=== PATIENT | female | born 1970 | race Caucasian/White ===

== ENCOUNTER → 2017-04-04 | Outpatient (CLI) | payer BC, OTHER ==
[~2017-04-04] MED LIST: CHOL50007 PO; LOSA100T25 PO; METH500T2; METO-169 PO; PRENTAB28 PO; RANI150C11 PO
== END | disposition home or self-care (01) ==
LOC: LAB 08:44
PROVIDERS: ATTEND Obstetrics & Gynecology
DX: R87.810 Cervical high risk human papillomavirus (HPV) DNA test positive (principal)

== ENCOUNTER → 2017-04-05 | Outpatient (CLI) | payer BC ==
[~2017-04-05] MED LIST changes: -CHOL50007 PO; -LOSA100T25 PO; -METO-169 PO; -RANI150C11 PO
[2017-04-05 09:33] LABS: Basophils # (auto) 0.1 uL; Hemoglobin 12.4 g/dL (12.2-16.2)
[2017-04-05 09:36] LABS: Basophils % (auto) 0.9 % (0.0-2.0); Eosinophils # (auto) 0.5 uL; Eosinophils % (auto) 5.6 % (0.0-7.0); Lymphocytes # (auto) 1.5 uL; Mean Corpuscular Hemoglobin 26.7 pg (28.0-32.0); Mean Corpuscular Hgb Conc. 33.5 g/dL (32.0-36.0); Mean Corpuscular Volume 79.6 fL (80.0-100.0); Mean Platelet Volume 8.7 fL (6.9-10.8); Monocytes # (auto) 0.4 uL; Monocytes % (auto) 4.7 % (0.0-12.0); Neutrophils # (auto) 5.6 uL; Neutrophils % (auto) 69.8 % (37.0-80.0); Platelet Count (auto) 279 10^3/uL (140-450); Red Cell Distribution Width 16.5 % (11.8-14.3); White Blood Cell 8.1 10^3/uL (4.4-10.8)
[2017-04-05 10:33] LABS: Albumin 3.6 g/dL (3.4-5.0); BUN/Creatinine Ratio 17.4; Bilirubin, Total 0.4 mg/dL (0.2-1.0); Potassium 4.4 mmol/L (3.5-5.1); Total Protein 7.5 g/dL (6.4-8.2)
== END | disposition home or self-care (01) ==
LOC: LAB 08:11
PROVIDERS: ATTEND Internal Medicine
DX: I10 Essential (primary) hypertension (principal); M10.00 Idiopathic gout, unspecified site
CPT/HCPCS: 36415; 80053; 80061; 82306; 84443; 85025

== ENCOUNTER 2017-07-19 07:46 | Day surgery (SDC) | payer BC, OTHER ==
[2017-07-16 11:40] LABS: Basophils # (auto) 0.1 uL; Eosinophils # (auto) 0.4 uL; Eosinophils % (auto) 4.6 % (0.0-7.0); Monocytes # (auto) 0.4 uL
[2017-07-16 11:42] LABS: Basophils % (auto) 0.9 % (0.0-2.0); Hematocrit 38.2 % (36.0-46.0); Hemoglobin 12.5 g/dL (12.2-16.2); Lymphocytes # (auto) 1.8 uL; Mean Corpuscular Hemoglobin 26.1 pg (28.0-32.0); Mean Corpuscular Hgb Conc. 32.8 g/dL (32.0-36.0); Mean Corpuscular Volume 79.6 fL (80.0-100.0); Monocytes % (auto) 4.7 % (0.0-12.0); Neutrophils # (auto) 5.1 uL; Neutrophils % (auto) 66.8 % (37.0-80.0); Nucleated Red Blood Cells % 0.1 %; Platelet Count (auto) 290 10^3/uL (140-450); Red Cell Distribution Width 17.1 % (11.8-14.3); White Blood Cell 7.7 10^3/uL (4.4-10.8)
[2017-07-16 11:47] LABS: Urine Blood 3+ /uL (Negative); Urine Specific Gravity 1.021 (1.001-1.035)
[2017-07-16 11:48] LABS: Albumin 3.6 g/dL (3.4-5.0); BUN/Creatinine Ratio 13.6; Bilirubin, Total 0.4 mg/dL (0.2-1.0); Calcium 8.5 mg/dL (8.5-10.1); Potassium 3.8 mmol/L (3.5-5.1); Total Protein 7.4 g/dL (6.4-8.2)
[2017-07-16 11:53] LABS: INR 0.93 (0.9-1.15); Partial Thromboplastin Time 28.7 sec (22.64-33.71); Prothrombin Time 10.1 sec (9.37-12.3)
[~2017-07-19] VITALS: Ht 165.1 cm; Wt 115.2 kg
[~2017-07-19 07:46] MED LIST changes: +CHOL50007 PO; +LOSA100T25 PO; -METH500T2; +METO-169 PO; -PRENTAB28 PO; +RANI150C11 PO
[2017-07-19] MEDS ORDERED: ROCURONIUM 10MG/ML 10ML VIAL IV ONE (07:47)
[2017-07-19] MEDS ORDERED: ceFAZolin 1GM/50ML 50 ML IV ONE (07:54)
[2017-07-19] MEDS ORDERED: PROPOFOL 10 MG/ML 20 ML IV ONE (08:13)
[2017-07-19] MEDS ORDERED: fentaNYL CITRATE 100 MCG/2 ML VL ONE (08:13)
[2017-07-19] MEDS ORDERED: ONDANSETRON HCL 4 MG/2 ML VIAL ONE (08:13)
[2017-07-19] MEDS ORDERED: MIDAZOLAM HCL 1MG/1ML-2 ML VIAL ONE (08:13)
[2017-07-19] MEDS ORDERED: IODINE STRONG 5% SOLN 473ML ONE (09:47)
[2017-07-19] MEDS ORDERED: FERRIC SUBSULFATE TOPICAL SOLN 30 ML BTL ONE (09:47)
[2017-07-19] MEDS ORDERED: MORPHINE SULFATE 4 MG/ML SYR/VIAL IV PRN (10:00)
[2017-07-19] MEDS ORDERED: KETOROLAC TROMETH 30 MG/ML 1ML VIAL IV ONE (10:00)
[2017-07-19] MEDS ORDERED: METOCLOPRAMIDE HCL 5MG/ml INJ 2ml VIAL IV ONE (10:00)
[2017-07-19] MEDS ORDERED: LACTATED RINGER'S 1,000 ML IV SCH (10:39)
[2017-07-19] MEDS ORDERED: ONDANSETRON HCL 4 MG/2 ML VIAL IV PRN (10:45)
[2017-07-19 11:38] VITALS: BP 125/82
== END 2017-07-19 11:53 | disposition home or self-care (01) ==
LOC: SUR 07:46
PROVIDERS: ATTEND Obstetrics & Gynecology
DX: R87.613 High grade squamous intraepithelial lesion on cytologic smear of cervix (HGSIL) (principal); E66.01 Morbid (severe) obesity due to excess calories; Z68.41 Body mass index [BMI] 40.0-44.9, adult; I10 Essential (primary) hypertension; Z90.49 Acquired absence of other specified parts of digestive tract
CPT/HCPCS: 36415; 57522; 80053; 81003; 84702; 85025; 85610; 85730; 86850; 86900; 86901; J0690; J2250; J2405; J2704; J3010

== ENCOUNTER → 2018-04-08 | Outpatient (CLI) | payer BC, OTHER ==
[2018-04-08 09:17] LABS: Albumin 3.4 g/dL (3.4-5.0); Potassium 4.1 mmol/L (3.5-5.1)
[2018-04-08 09:25] LABS: BUN/Creatinine Ratio 12.9; Bilirubin, Total 0.5 mg/dL (0.2-1.0); Calcium 8.7 mg/dL (8.5-10.1); Mean Corpuscular Hgb Conc. 32.1 g/dL (32.0-36.0); Monocytes # (auto) 0.4 uL; Red Blood Cells 4.91 10^6/uL (4.0-5.20); Total Protein 7.5 g/dL (6.4-8.2)
[2018-04-08 09:27] LABS: Basophils # (auto) 0.1 uL; Basophils % (auto) 0.6 % (0.0-2.0); Eosinophils # (auto) 0.4 uL; Eosinophils % (auto) 4.1 % (0.0-7.0); Hematocrit 39.2 % (36.0-46.0); Hemoglobin 12.6 g/dL (12.2-16.2); Lymphocytes # (auto) 1.4 uL; Lymphocytes % (auto) 16.5 % (10.0-50.0); Mean Corpuscular Hemoglobin 25.6 pg (28.0-32.0); Mean Corpuscular Volume 79.8 fL (80.0-100.0); Monocytes % (auto) 4.1 % (0.0-12.0); Neutrophils # (auto) 6.4 uL; Neutrophils % (auto) 74.7 % (37.0-80.0); Nucleated Red Blood Cells % 0.1 %; Platelet Count (auto) 288 10^3/uL (140-450); Red Cell Distribution Width 16.8 % (11.8-14.3); White Blood Cell 8.6 10^3/uL (4.4-10.8)
== END | disposition home or self-care (01) ==
LOC: LAB 08:30
PROVIDERS: ATTEND Internal Medicine
DX: I10 Essential (primary) hypertension (principal); E55.9 Vitamin D deficiency, unspecified
CPT/HCPCS: 36415; 80053; 80061; 82306; 84443; 85025

== ENCOUNTER → 2018-09-08 | Outpatient (CLI) | payer BC, OTHER | END | disposition home or self-care (01) | LOC: LAB 09:20 | PROVIDERS: ATTEND Internal Medicine | DX: R73.01 Impaired fasting glucose (principal) | CPT/HCPCS: 36415; 83036 ==

== ENCOUNTER → 2020-04-04 | Outpatient (CLI) | payer BC ==
[2020-04-04 08:24] LABS: Basophils # (auto) 0.1 10 ^3/uL (0-0.2); Eosinophils # (auto) 0.3 10 ^3/uL (0-0.8); Hemoglobin 12.3 g/dL (12.2-16.2); Lymphocytes # (auto) 1.7 10 ^3/uL (0.4-5.4); Monocytes # (auto) 0.4 10 ^3/uL (0-1.3); Red Cell Distribution Width 17.9 % (11.8-14.3)
[2020-04-04 08:25] LABS: Basophils % (auto) 1.1 % (0.0-2.0); Eosinophils % (auto) 2.8 % (0.0-7.0); Hematocrit 38.5 % (36.0-46.0); Lymphocytes % (auto) 18.4 % (10.0-50.0); Mean Corpuscular Volume 78.1 fL (80.0-100.0); Monocytes % (auto) 4.5 % (0.0-12.0); Neutrophils # (auto) 6.9 10 ^3/uL (1.6-8.6); Neutrophils % (auto) 73.2 % (37.0-80.0); Platelet Count (auto) 306 10^3/uL (140-450); Red Blood Cells 4.93 10^6/uL (4.0-5.20); White Blood Cell 9.4 10^3/uL (4.4-10.8)
[2020-04-04 09:44] LABS: Potassium 3.2 mmol/L (3.5-5.1)
[2020-04-04 09:52] LABS: Albumin 3.6 g/dL (3.4-5.0); BUN/Creatinine Ratio 14.7; Bilirubin, Total 0.4 mg/dL (0.2-1.0); Calcium 9.5 mg/dL (8.5-10.1); Total Protein 7.5 g/dL (6.4-8.2)
== END | disposition home or self-care (01) ==
LOC: LAB 08:11
PROVIDERS: ATTEND Internal Medicine
DX: Z00.00 Encounter for general adult medical examination without abnormal findings (principal); I10 Essential (primary) hypertension; E55.9 Vitamin D deficiency, unspecified; R73.01 Impaired fasting glucose
CPT/HCPCS: 36415; 80053; 80061; 82306; 83036; 84443; 85025

== ENCOUNTER → 2020-04-04 | Outpatient (CLI) | payer BC | END | disposition home or self-care (01) | LOC: XYW 14:42 | PROVIDERS: ATTEND Internal Medicine | DX: K57.30 Diverticulosis of large intestine without perforation or abscess without bleeding (principal); N13.2 Hydronephrosis with renal and ureteral calculous obstruction; R16.2 Hepatomegaly with splenomegaly, not elsewhere classified; M47.9 Spondylosis, unspecified; K42.9 Umbilical hernia without obstruction or gangrene; R10.9 Unspecified abdominal pain; Z90.49 Acquired absence of other specified parts of digestive tract | CPT/HCPCS: 74176 ==

== ENCOUNTER → 2020-05-05 | Outpatient (CLI) | payer BC ==
[2020-05-05 14:56] LABS: BUN/Creatinine Ratio 14.6; Calcium 9.1 mg/dL (8.5-10.1)
== END | disposition home or self-care (01) ==
LOC: LAB 13:43
PROVIDERS: ATTEND Internal Medicine
DX: E87.6 Hypokalemia (principal)
CPT/HCPCS: 36415; 80048

== ENCOUNTER → 2020-07-15 | Outpatient (CLI) | payer BC | END | disposition home or self-care (01) | LOC: XYW 13:03 | PROVIDERS: ATTEND Internal Medicine | DX: S93.522A Sprain of metatarsophalangeal joint of left great toe, initial encounter (principal); M72.2 Plantar fascial fibromatosis; M65.872 Other synovitis and tenosynovitis, left ankle and foot; M79.89 Other specified soft tissue disorders; R60.0 Localized edema; S82.52XD Displaced fracture of medial malleolus of left tibia, subsequent encounter for closed fracture with routine healing; X58.XXXA Exposure to other specified factors, initial encounter; X58.XXXD Exposure to other specified factors, subsequent encounter; Y93.89 Activity, other specified; Y92.89 Other specified places as the place of occurrence of the external cause; Y99.8 Other external cause status | CPT/HCPCS: 73718; 73721 ==

== ENCOUNTER → 2020-11-24 | Outpatient (CLI) | payer BC ==
[~2020-11-24] MED LIST changes: -METO-169 PO; +METO-289 PO
[2020-11-24 08:28] LABS: Uric Acid 7.2 mg/dL (2.6-6.0)
== END | disposition home or self-care (01) ==
LOC: LAB 07:47
PROVIDERS: ATTEND Internal Medicine
DX: I10 Essential (primary) hypertension (principal)
CPT/HCPCS: 36415; 80061; 84550

== ENCOUNTER → 2021-03-22 | Outpatient (CLI) | payer BC ==
[2021-03-22 07:58] LABS: Albumin 3.2 g/dL (3.4-5.0)
[2021-03-22 08:02] LABS: Bilirubin, Direct 0.1 mg/dL (0-0.2); Bilirubin, Total 0.4 mg/dL (0.2-1.0); Total Protein 7.1 g/dL (6.4-8.2); Uric Acid 5.3 mg/dL (2.6-6.0)
== END | disposition home or self-care (01) ==
LOC: LAB 07:12
PROVIDERS: ATTEND Internal Medicine
DX: I10 Essential (primary) hypertension (principal); R73.03 Prediabetes; M10.9 Gout, unspecified
CPT/HCPCS: 36415; 80061; 80076; 84550

== ENCOUNTER → 2021-07-12 | Outpatient (CLI) | payer BC ==
[2021-07-12 09:22] LABS: Albumin 3.2 g/dL (3.4-5.0); Bilirubin, Direct 0.1 mg/dL (0-0.2)
[2021-07-12 09:25] LABS: Bilirubin, Total 0.4 mg/dL (0.2-1.0); Total Protein 6.9 g/dL (6.4-8.2)
== END | disposition home or self-care (01) ==
LOC: LAB 07:53
PROVIDERS: ATTEND Internal Medicine
DX: R73.03 Prediabetes (principal); R79.89 Other specified abnormal findings of blood chemistry
CPT/HCPCS: 36415; 80076; 82270; 83036

== ENCOUNTER → 2021-09-29 | Day surgery (SDC) | payer BC ==
[2021-09-28 09:32] LABS: Basophils # (auto) 0.2 10 ^3/uL (0-0.2); Hemoglobin 12.3 g/dL (12.2-16.2); Mean Corpuscular Hgb Conc. 33.6 g/dL (32.0-36.0); Nucleated Red Blood Cells % 0.1 %; White Blood Cell 7.8 10^3/uL (4.4-10.8)
[2021-09-28 09:33] LABS: Eosinophils # (auto) 0.3 10 ^3/uL (0-0.8); Eosinophils % (auto) 3.8 % (0.0-7.0); Hematocrit 36.5 % (36.0-46.0); Lymphocytes # (auto) 1.5 10 ^3/uL (0.4-5.4); Mean Corpuscular Hemoglobin 26.7 pg (28.0-32.0); Mean Corpuscular Volume 79.2 fL (80.0-100.0); Monocytes # (auto) 0.3 10 ^3/uL (0-1.3); Monocytes % (auto) 4.4 % (0.0-12.0); Neutrophils # (auto) 5.5 10 ^3/uL (1.6-8.6); Neutrophils % (auto) 70.8 % (37.0-80.0); Red Cell Distribution Width 17.8 % (11.8-14.3)
[2021-09-28 09:48] LABS: INR 1.07 (0.9-1.15); Partial Thromboplastin Time 26.6 sec (23.6-33.0)
[2021-09-28 10:09] LABS: Calcium 9.1 mg/dL (8.5-10.1); Potassium 3.9 mmol/L (3.5-5.1)
[2021-09-28 10:13] LABS: Bilirubin, Total 0.5 mg/dL (0.2-1.0); Total Protein 7.3 g/dL (6.4-8.2)
[2021-09-28 10:43] LABS: BUN/Creatinine Ratio 8.9
[~2021-09-29] VITALS: Ht 165.1 cm; Wt 117.9 kg
[~2021-09-29] MED LIST changes: +ALLO300T2 PO; +FAMO20TA10 PO; +LIDOCAINE VISCOUS 2% 15ML UD ONE; -METO-289 PO; +METO1TAB9 PO; +METOCLOPRAMIDE HCL 5MG/ml INJ 2ml VIAL IV PRN; +MIDAZOLAM HCL 5 MG/ML-1ML VIAL ONE; +ONDANSETRON HCL 4 MG/2 ML VIAL IV PRN; -RANI150C11 PO; +diphenhdrAMINE HCL 50 MG/1 ML VL ONE; +fentaNYL CITRATE 100 MCG/2 ML VL IV PRN; +fentaNYL CITRATE 100 MCG/2 ML VL ONE
[2021-09-29 14:55] VITALS: BP 120/87
== END | disposition home or self-care (01) ==
LOC: GI 12:20
PROVIDERS: ATTEND Internal Medicine Gastroenterology
DX: Z12.11 Encounter for screening for malignant neoplasm of colon (principal); K57.30 Diverticulosis of large intestine without perforation or abscess without bleeding; K64.8 Other hemorrhoids; K21.9 Gastro-esophageal reflux disease without esophagitis; K29.50 Unspecified chronic gastritis without bleeding; K21.00 Gastro-esophageal reflux disease with esophagitis, without bleeding; K44.9 Diaphragmatic hernia without obstruction or gangrene; K31.7 Polyp of stomach and duodenum; K22.2 Esophageal obstruction; K63.89 Other specified diseases of intestine; E66.01 Morbid (severe) obesity due to excess calories; M10.9 Gout, unspecified; Z82.49 Family history of ischemic heart disease and other diseases of the circulatory system; Z80.41 Family history of malignant neoplasm of ovary; Z82.69 Family history of other diseases of the musculoskeletal system and connective tissue; Z68.41 Body mass index [BMI] 40.0-44.9, adult; Z20.822 Contact with and (suspected) exposure to COVID-19
CPT/HCPCS: 36415; 43251; 45378; 80053; 81025; 84702; 85025; 85610; 85730; J1200; J2250; J3010; U0003; 99152; 99153

== ENCOUNTER → 2022-01-31 | Outpatient (CLI) | payer BC ==
[~2022-01-31] MED LIST changes: -LIDOCAINE VISCOUS 2% 15ML UD ONE; -METOCLOPRAMIDE HCL 5MG/ml INJ 2ml VIAL IV PRN; -MIDAZOLAM HCL 5 MG/ML-1ML VIAL ONE; -ONDANSETRON HCL 4 MG/2 ML VIAL IV PRN; -diphenhdrAMINE HCL 50 MG/1 ML VL ONE; -fentaNYL CITRATE 100 MCG/2 ML VL IV PRN; -fentaNYL CITRATE 100 MCG/2 ML VL ONE
[2022-01-31 09:02] LABS: Potassium 3.5 mmol/L (3.5-5.1)
[2022-01-31 09:12] LABS: BUN/Creatinine Ratio 13.3; Calcium 8.5 mg/dL (8.5-10.1); Uric Acid 4.4 mg/dL (2.6-6.0)
== END | disposition home or self-care (01) ==
LOC: LAB 07:42
PROVIDERS: ATTEND Internal Medicine
DX: N18.30 Chronic kidney disease, stage 3 unspecified (principal); R73.03 Prediabetes
CPT/HCPCS: 36415; 80048; 80061; 82043; 83036; 84550

== ENCOUNTER → 2022-05-23 | Outpatient (CLI) | payer BC ==
[2022-05-23 08:25] LABS: Albumin 3.6 g/dL (3.4-5.0); Calcium 9.4 mg/dL (8.5-10.1); Potassium 3.4 mmol/L (3.5-5.1); Uric Acid 4.4 mg/dL (2.6-6.0)
[2022-05-23 08:28] LABS: BUN/Creatinine Ratio 14.1; Bilirubin, Direct 0.2 mg/dL (0-0.2); Bilirubin, Total 0.5 mg/dL (0.2-1.0); Total Protein 7.5 g/dL (6.4-8.2)
== END | disposition home or self-care (01) ==
LOC: LAB 07:45
PROVIDERS: ATTEND Internal Medicine Gastroenterology
DX: Z00.00 Encounter for general adult medical examination without abnormal findings (principal); R73.03 Prediabetes; E78.5 Hyperlipidemia, unspecified; K76.0 Fatty (change of) liver, not elsewhere classified
CPT/HCPCS: 36415; 80053; 80061; 80076; 82728; 83036; 84550; 86038

== ENCOUNTER → 2022-06-08 | Outpatient (CLI) | payer BC ==
[2022-06-08 09:06] LABS: Albumin 3.2 g/dL (3.4-5.0); Bilirubin, Direct 0.2 mg/dL (0-0.2)
[2022-06-08 09:10] LABS: Bilirubin, Total 0.5 mg/dL (0.2-1.0); Total Protein 7.2 g/dL (6.4-8.2)
== END | disposition home or self-care (01) ==
LOC: LAB 07:53
PROVIDERS: ATTEND Internal Medicine
DX: E78.5 Hyperlipidemia, unspecified (principal)
CPT/HCPCS: 36415; 80076

== ENCOUNTER → 2022-08-22 | Outpatient (CLI) | payer BC ==
[2022-08-22 08:11] LABS: Albumin 3.2 g/dL (3.4-5.0); Calcium 9.7 mg/dL (8.5-10.1); Potassium 3.6 mmol/L (3.5-5.1)
[2022-08-22 08:15] LABS: BUN/Creatinine Ratio 13.4 (10.0-20.0); Bilirubin, Total 0.5 mg/dL (0.2-1.0); Total Protein 7.3 g/dL (6.4-8.2)
== END | disposition home or self-care (01) ==
LOC: LAB 07:38
PROVIDERS: ATTEND Internal Medicine
DX: E78.5 Hyperlipidemia, unspecified (principal); R73.03 Prediabetes
CPT/HCPCS: 36415; 80053; 80061; 83036

== ENCOUNTER → 2023-01-01 | Outpatient (CLI) | payer BC ==
[2023-01-01 08:17] LABS: Chloride 101 mmol/L (98-107); Potassium 3.9 mmol/L (3.5-5.1); Sodium 139 mmol/L (136-145)
[2023-01-01 08:19] LABS: Calcium 9.4 mg/dL (8.5-10.1)
[2023-01-01 08:23] LABS: Glucose 100 mg/dL (74-106)
[2023-01-01 08:24] LABS: BUN/Creatinine Ratio 6.3 (10.0-20.0); Blood Urea Nitrogen 6 mg/dL (9-23)
== END | disposition home or self-care (01) ==
LOC: LAB 07:52
PROVIDERS: ATTEND Internal Medicine
DX: E11.21 Type 2 diabetes mellitus with diabetic nephropathy (principal)
CPT/HCPCS: 36415; 80048

== ENCOUNTER → 2023-04-01 | Outpatient (CLI) | payer BC ==
[2023-04-01 12:17] LABS: Alanine Aminotransferase 16 U/L (7-40); Albumin 4.4 g/dL (3.2-4.8); Alkaline Phosphatase 95 U/L (46-116); Anion Gap 8 (5-15); Aspartate Aminotransferase 16 U/L (13-40); BUN/Creatinine Ratio 16.7 (10.0-20.0); Blood Urea Nitrogen 14 mg/dL (9-23); Calcium 9.8 mg/dL (8.5-10.1); Carbon Dioxide 33 mmol/L (20-30); Chloride 97 mmol/L (98-107); Cholesterol 123 mg/dL (< 200); Glucose 78 mg/dL (74-106); LDL Cholesterol 63 mg/dL (< 100); Potassium 3.6 mmol/L (3.5-5.1); Sodium 138 mmol/L (136-145); Triglycerides 129 mg/dL (< 150)
[2023-04-01 12:18] LABS: Bilirubin, Total 0.6 mg/dL (0.2-1.0); HDL Cholesterol 43 mg/dL (40-59); Total Protein 6.8 g/dL (5.7-8.2)
== END | disposition home or self-care (01) ==
LOC: LAB 11:28
PROVIDERS: ATTEND Internal Medicine
DX: I10 Essential (primary) hypertension (principal); E78.5 Hyperlipidemia, unspecified; R73.03 Prediabetes
CPT/HCPCS: 36415; 80053; 80061; 84443

== ENCOUNTER → 2024-03-31 | Outpatient (CLI) | payer BC ==
[2024-03-31 08:15] LABS: Alanine Aminotransferase 35 U/L (7-40); Albumin 4.6 g/dL (3.2-4.8); Alkaline Phosphatase 106 U/L (46-116); Anion Gap 7 (5-15); Aspartate Aminotransferase 22 U/L (13-40); BUN/Creatinine Ratio 10.9 (10.0-20.0); Blood Urea Nitrogen 11 mg/dL (9-23); Carbon Dioxide 31 mmol/L (20-31); Chloride 102 mmol/L (98-107); Cholesterol 152 mg/dL (< 200); Glucose 90 mg/dL (74-106); HDL Cholesterol 43 mg/dL (40-59); LDL Cholesterol 82 mg/dL (< 100); Potassium 3.4 mmol/L (3.5-5.1); Sodium 140 mmol/L (136-145); Triglycerides 242 mg/dL (< 150)
[2024-03-31 08:16] LABS: Bilirubin, Total 0.9 mg/dL (0.2-1.0); Total Protein 7.4 g/dL (5.7-8.2)
[2024-03-31 08:26] LABS: Creatinine, Urine 211.58 mg/dL (30.0-125.0)
[2024-03-31 09:14] LABS: Follicle Stimulating Hormone 23.09 IU/L (SEE BELOW)
[2024-03-31 09:15] LABS: Leuteinizing Hormone 16.3 IU/L
== END | disposition home or self-care (01) ==
LOC: LAB 07:36
PROVIDERS: ATTEND Obstetrics & Gynecology
DX: E11.9 Type 2 diabetes mellitus without complications (principal); E78.5 Hyperlipidemia, unspecified; N95.0 Postmenopausal bleeding
CPT/HCPCS: 36415; 80053; 80061; 82043; 82570; 82670; 83001; 83002; 83036; 84403; 84443

== ENCOUNTER → 2024-09-10 | Outpatient (CLI) | payer BC ==
[2024-09-10 08:35] LABS: Alanine Aminotransferase 26 U/L (7-40); Albumin 4.5 g/dL (3.2-4.8); Alkaline Phosphatase 98 U/L (46-116); Anion Gap 10 (5-15); Aspartate Aminotransferase 16 U/L (13-40); BUN/Creatinine Ratio 11.6 (10.0-20.0); Blood Urea Nitrogen 11 mg/dL (9-23); Carbon Dioxide 29 mmol/L (20-31); Chloride 102 mmol/L (98-107); Potassium 3.6 mmol/L (3.5-5.1); Sodium 141 mmol/L (136-145); Total Protein 6.9 g/dL (5.7-8.2)
[2024-09-10 08:36] LABS: Bilirubin, Total 0.6 mg/dL (0.2-1.0); Glucose 117 mg/dL (74-106)
[2024-09-10 09:32] LABS: LDL Cholesterol 78 mg/dL (< 100); Triglycerides 166 mg/dL (< 150)
[2024-09-10 09:33] LABS: Cholesterol 142 mg/dL (< 200); HDL Cholesterol 40 mg/dL (40-59)
[2024-09-11 13:35] LABS: Creatinine, Urine 189.47 mg/dL (30.0-125.0)
== END | disposition home or self-care (01) ==
LOC: LAB 07:50
PROVIDERS: ATTEND Internal Medicine
DX: E11.9 Type 2 diabetes mellitus without complications (principal); E78.5 Hyperlipidemia, unspecified
CPT/HCPCS: 36415; 80053; 80061; 82043; 82570; 83036; 84443

== ENCOUNTER 2024-12-22 07:33 | Outpatient (CLI) | payer BC ==
[2024-12-22 07:53] LABS: Hematocrit 39.5 % (36.0-46.0); Hemoglobin 13.5 g/dL (12.2-16.2); Mean Corpuscular Hemoglobin 29.0 pg (28.0-32.0); Mean Corpuscular Volume 84.7 fL (80.0-100.0); Nucleated Red Blood Cells % 0.1 %
== END 2024-12-22 17:00 | disposition home or self-care (01) ==
LOC: LAB 07:33
PROVIDERS: ATTEND Internal Medicine
DX: I10 Essential (primary) hypertension (principal); E78.5 Hyperlipidemia, unspecified; R73.03 Prediabetes; R53.82 Chronic fatigue, unspecified; Z79.899 Other long term (current) drug therapy
CPT/HCPCS: 36415; 82306; 82550; 82607; 82746; 84403; 85025; 85652